=== PATIENT | female | born 2000 | race Caucasian/White ===

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

== ENCOUNTER 2022-01-11 17:35 | Emergency (ER) | payer BC, SELFPAY ==
--- NOTE | ~2022-01-11 | CT_ITS ---
EXAMINATION: CT abdomen pelvis w con DATE: 01/12/2022 01:21 INDICATION: Right lower quadrant abdominal pain TECHNIQUE: Computed tomography (CT) of the abdomen and pelvis was performed with 100 CC Omnipaque 350 intravenous contrast. Automated exposure control and iterative reconstruction technique were employe d. Exam dose: 181.06 mGy-cm total exam DLP. COMPARISON: 08/18/2018 pelvic ultrasound examination FINDINGS: The lung bases are clear. Normal heart size. No pericardial or pleural effusion. The liver, gallbladder, bile ducts, spleen, pancreas, pancreatic duct, and adrenal glands and kidneys are unremarkable. Normal caliber of the abdominal aorta. No intraperitoneal or retroperitoneal or pe lvic mass lesion or adenopathy or ascites is detected. Uterus, adnexal areas and urinary bladder are unremarkable. No evidence of appendicitis. No bowel obstruction or intraperitoneal free air is detected. Included skeletal structures are unremarkable. IMPRESSION: No significant abnormality Reviewed, dictated and finalized at [facility]. Reviewed, dictated and finalized at [facility]. IMPRESSION: No significant abnormality
[2022-01-11 18:14] VITALS: BP 113/76; PULSE 76; RESP 16; TEMP 37.2; O2SAT 99
[2022-01-11 19:47] LABS: Appearance Urine Clear (Clear); Bilirubin Urine Negative (Negative); Blood Urine Negative (Negative); Color Urine Yellow (Yellow); Glucose Urine UA Negative (Negative); Ketones Urine Negative (Negative); Leukocyte Esterase Ur Trace LEU/UL (Negative); Nitrate Urine Negative (Negative); Protein Urine Negative (Negative); Urobilinogen Urine 0.2 mg/dL (<2.0)
[2022-01-11 19:47] LABS: Basophils Percent Auto 0.3 % (0.2-1.2); Eosinophils Absolute Auto 0.1 K/mm3 (0-0.3); Eosinophils Percent Auto 1.4 % (0-4.4); Hematocrit 40.9 % (37.0-47.0); Hemoglobin 13.8 g/dL (12.0-15.0); Immature Granulocyte Absolute 0.03 K/mm3 (0.00-0.031); Immature Granulocyte Percent A 0.3 % (0-0.5); Lymphocytes Absolute Auto 2.91 K/mm3 (0.9-3.2); Lymphocytes Percent Auto 32.2 % (18.3-44.2); Mean Corpuscular HGB Conc 33.7 g/dl (32-36); Mean Corpuscular Hemoglobin 32.4 pg (26-34); Monocytes Absolute Auto 0.8 K/mm3 (0.1-0.6); Monocytes Percent Auto 8.8 % (2.6-8.5); Neutrophils Absolute Auto 5.2 K/mm3 (1.3-6.7); Platelet Count Result 290 k/mm3 (150-375); Red Blood Count 4.26 M/mm3 (4.2-5.4); Red Cell Distribution Width 12.5 % (11.5-14.5); White Blood Count 9.1 K/mm3 (4.5-10.0)
[2022-01-11 19:53] LABS: Amorphous Sediment Urine Few; Bacteria Urine Trace /hpf; Mucus Urine Rare /lpf; RBC Urine 0-2 /hpf (0-2); Squamous Epithelial Cell Urine Occasional /hpf (Few); WBC Urine 0-3 /hpf
[2022-01-11 19:54] LABS: Add Urine Microscopic? YES
[2022-01-11 19:56] LABS: Alanine Aminotransferase 11 U/L (6-35); Albumin Level 4.1 g/dL (3.7-5.6); Alkaline Phosphatase 50 U/L (45-116); Anion Gap 12 mmol/L (8-16); Aspartate Amino Transferase 25 U/L (14-36); Bilirubin,Total 0.4 mg/dL (0.2-1.3); Blood Urea Nitrogen 8 mg/dL (8-21); Calcium 9.3 mg/dL (8.9-10.7); Carbon Dioxide 23 mmol/L (22-30); Chloride 103 mmol/L (98-107); Estimated CRCL calculation 119 ml/min; Estimated Glomerular Filt Rate > 60; Glucose 99 mg/dL (65-110); Lipase 52 U/L (23-300); Sodium 138 mmol/L (134-143)
[2022-01-11 22:50] VITALS: BP 106/64; PULSE 77; RESP 20; TEMP 36.9; O2SAT 100
[2022-01-12] VITALS (25 sets, daily range): BP systolic 103–115; BP diastolic 71–85; PULSE 62–89; RESP 10–20; TEMP 37.1; O2SAT 97–100
--- NOTE | 2022-01-12 00:40 | ED.ABDPAIN ---
HPI - Abdominal Pain General Chief Complaint: Abdominal Pain Stated Complaint: RLQ swelling Time Seen by Provider: 01/12/22 00:12 Source: patient Mode of arrival: ambulatory Limitations: no limitations History of Present Illness HPI narrative: This is a 21 year old female that presents to the ER for RLQ pain that started tonight. The pain is sharp in nature. Associated with nausea and anorexia. Denies fever, vomiting, dysuria, or hematuria. Related Data Allergies Allergy/AdvReac Type Severity Reaction Status Date / Time No Known Allergies Allergy Verified 01/12/22 02:30 Review of Systems Review of Systems: CONSTITUTIONAL: Denies fever GASTROINTESTINAL: Reports abdominal pain, nausea. Denies vomiting, or diarrhea. GENITOURINARY: Denies dysuria or hematuria. All systems reviewed & are unremarkable except as noted in HPI and below PMFSH Past Medical History Medical History Body mass index (BMI) less than 16.5 Family History Family History Mother Diabetes mellitus Father No problems noted. Other Family history of mental disorder Social History Social History Smoking status: Never smoker Alcohol intake: never Exam Narrative: GENERAL: Well-appearing, well-nourished, and in no acute distress. HEAD: Normocephalic, atraumatic. EYES: EOMI. CHEST: Clear to auscultation. No respiratory distress. No wheezes rales or rhonchi HEART: Regular rate and rhythm. No murmur heard. Normal peripheral pulses. ABDOMEN: Soft, nondistended, normal active bowel sounds. Mild tenderness to palpation of the right lower quadrant, without guarding. No CVA tenderness EXTREMITIES: Normal range of motion. No edema. SKIN: Warm, dry, no rash. NEURO: No focal deficits. Alert and oriented x3. PSYCH: Normal mood and affect Course Vital Signs Vital signs: Vital Signs Temperature 98.9 F 01/11/22 18:14 Pulse Rate 76 01/11/22 18:14 Respiratory Rate 16 01/11/22 18:14 Blood Pressure 113/76 01/11/22 18:14 Pulse Oximetry 99 01/11/22 18:14 Temperature 98.7 F 01/12/22 00:14 Pulse Rate 69 01/12/22 00:45 Respiratory Rate 13 01/12/22 00:45 Blood Pressure 112/76 01/12/22 00:45 Pulse Oximetry 99 01/12/22 00:45 Oxygen Delivery Room Air 01/12/22 00:14 MDM - Abdominal Pain MDM Narrative Medical decision making narrative: Patient presents to the emergency department for right lower quadrant pain. She is afebrile and nontoxic-appearing. Her vitals are stable. CBC metabolic panel without concerning findings. UA without evidence of infection. Bedside test is negative. CT scan of the abdomen and pelvis is without acute findings. Patient was updated on case findings. Resting comfortably after Tylenol and Zofran. She is stable and felt appropriate for further outpatient evaluation. Instructed to have close follow-up with her primary doctor. She was given warnings to return to the ER Lab Data Attestation: I reviewed the patient's lab results. Result diagrams: 01/11/22 19:26 01/11/22 19:26 Labs: Lab Results 01/11/22 01/11/22 01/11/22 Range/Units 19:26 19:26 19:27 WBC 9.1 (4.5-10.0) K/mm3 RBC 4.26 (4.2-5.4) M/mm3 Hgb 13.8 (12.0-15.0) g/dL Hct 40.9 (37.0-47.0) % MCV 96.0 (80-100) fl MCH 32.4 (26-34) pg MCHC 33.7 (32-36) g/dl RDW 12.5 (11.5-14.5) % Plt Count 290 (150-375) k/mm3 MPV 10.0 (7.4-10.4) fl Immature Gran % (Auto) 0.3 (0-0.5) % Neut % (Auto) 57.0 (45.5-73.1) % Lymph % (Auto) 32.2 (18.3-44.2) % [place] % (Auto) 8.8 H (2.6-8.5) % Eos % (Auto) 1.4 (0-4.4) % Baso % (Auto) 0.3 (0.2-1.2) % Lymph # (Auto) 2.91 (0.9-3.2) K/mm3 [place] # (Auto) 0.8 H (0.1-0.6) K/mm3 Eos #
[2022-01-12] MEDS: ONDANSETRON INJ 4 MG/2 ML VIAL IV PUSH (02:31)
[2022-01-12 02:41] LABS: Glucose Point of Care 105 mg/dl (65-105)
== END 2022-01-12 03:48 | disposition home or self-care (01) ==
PROVIDERS: Emergency Medicine; Emergency Provider Emergency Medicine; PCP Family Medicine
DX: R10.31 Right lower quadrant pain (principal)
CPT/HCPCS: 36415; 74177; 80053; 81001; 81025; 82948; 83690; 85025; 96365; 96375; 99284; J0131; J2405; Q9967

== ENCOUNTER 2022-11-07 16:29 | Emergency (ER) | payer OTHER, BC, SELFPAY ==
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
[2022-11-07 16:50] VITALS: BP 106/73; PULSE 81; RESP 18; TEMP 36.8; O2SAT 100
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
== END 2022-11-07 18:05 | disposition home or self-care (01) ==
PROVIDERS: Emergency Provider Nurse Practitioner; PCP Family Medicine
DX: S46.812A Strain of other muscles, fascia and tendons at shoulder and upper arm level, left arm, initial encounter (principal); S16.1XXA Strain of muscle, fascia and tendon at neck level, initial encounter; V49.50XA Passenger injured in collision with unspecified motor vehicles in traffic accident, initial encounter
CPT/HCPCS: 72050; 99213; G0463